=== PATIENT | male | born 1995 | race Caucasian/White ===

== ENCOUNTER 2017-01-08 16:45 | Emergency (ER) | payer SELFPAY ==
[2017-01-08] MEDS ORDERED: Naproxen 500 MG TAB ONE (17:16)
== END 2017-01-08 17:25 | disposition home or self-care (01) ==
LOC: MADERS 16:45
DX: D17.1 Benign lipomatous neoplasm of skin and subcutaneous tissue of trunk (principal); Z87.891 Personal history of nicotine dependence
CPT/HCPCS: 99282

== ENCOUNTER 2017-01-12 14:19 | Emergency (ER) | payer SELFPAY ==
--- NOTE | 2017-01-12 15:24 | RAD ---
PA CHEST LEFT RIBS THREE VIEWS: History: Left sided chest pain. FINDINGS: The heart size is normal. The lungs are expanded without focal areas of consolidation, pneumothorax or pleural effusions. No left sided rib fracture is seen. This study was interpreted in consultation with Dr. Ariel Rollins, who concurs. POS: [facility]
== END 2017-01-12 15:27 | disposition home or self-care (01) ==
LOC: MADERS 14:19
DX: M94.0 Chondrocostal junction syndrome [Tietze] (principal); Z87.891 Personal history of nicotine dependence

== ENCOUNTER 2017-01-20 07:42 | Emergency (ER) | payer SELFPAY ==
--- NOTE | 2017-01-20 08:21 | RAD ---
TWO VIEWS CHEST: Comparison: None. History: Cough FINDINGS: Two views of the chest show normal sized cardiomediastinal silhouette. There is no evidence of conso lidation, mass, or pleural effusion. The bones are unremarkable. IMPRESSION: No evidence of acute cardiopulmonary disease. POS: [facility]
[2017-01-20] MEDS ORDERED: Benzonatate 100 MG CAP ONE (08:42)
[2017-01-20] MEDS ORDERED: Ventolin HFA Inhaler 60 PUFF INHALER ONE (08:42)
[2017-01-20] MEDS ORDERED: Dexamethasone 4 MG TAB ONE (08:42)
== END 2017-01-20 08:50 | disposition home or self-care (01) ==
LOC: MADERS 07:42
DX: J20.9 Acute bronchitis, unspecified (principal); F31.9 Bipolar disorder, unspecified; F41.0 Panic disorder [episodic paroxysmal anxiety]; Z87.891 Personal history of nicotine dependence
CPT/HCPCS: 71020; J8540

== ENCOUNTER 2019-05-06 11:59 | Emergency (ER) | payer SELFPAY | END 2019-05-06 13:00 | disposition home or self-care (01) | LOC: MADERS 11:59 | DX: S51.812A Laceration without foreign body of left forearm, initial encounter (principal); F41.0 Panic disorder [episodic paroxysmal anxiety]; F31.9 Bipolar disorder, unspecified; F17.200 Nicotine dependence, unspecified, uncomplicated; W45.0XXA Nail entering through skin, initial encounter | CPT/HCPCS: 99282 ==